=== PATIENT | female | born 1970 | race Caucasian/White ===

== ENCOUNTER 2024-12-29 19:06 | Emergency (ER) | payer MEDICAID ==
[~2024-12-29] VITALS: Ht 170.2 cm; Wt 72.5 kg
[2024-12-29 19:10] VITALS: BP 167/85; PULSE 89; O2SAT 99
--- NOTE | 2024-12-29 19:51 | RADIOLOGY REPORT ---
CLINICAL INDICATION: Fall, pain, BACK INJURY 20 YRS AGO TECHNIQUE: 3 radiographic views of the lumbar spine were obtained. Comparison: None FINDINGS/IMPRESSION: 5 cyi-lso-uxtfczy lumbar-type vertebra. Mild straightening of the lumbar lordosis. Vertebral body he ights are maintained. No evidence of acute traumatic fractures or spondylolisthesis. Multilevel mild- to-moderate degenerative changes of the lumbar spine. Large amount of fecal material within the partially visualized colon.
[2024-12-29 20:42] VITALS: RESP 16
[2024-12-29] MEDS: ketorolac trometh 15mg/ml vial 15 MG/ML ML IM ONE (20:42)
--- NOTE | 2024-12-29 21:44 | ELECTROCARDIOGRAPH REPORT ---
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
--- NOTE | 2024-12-29 22:13 | Physician Documentation ---
History of Present Illness ~ Chief Complaint: Mechanical Fall Stated Complaint: FALL Time Seen by MD: 19:35 HPI Patient is a 54-year-old female that reports to the emergency department for back pain after fall earlier today. Representing have a new dog the dog circled around her tripped her and she fell onto her butt twisting as she went down. Patient reports striking her right knee left elbow they are semi painful but the majority of her pain is from her lower back radiating down her right leg. Patient reports that she has had a history of back pain in the past. Patient denies striking her head. Patient denies head or neck pain at this time. Tetanus within 5 Years?: Yes Medication Reconciliation Allergies: Coded Allergies: No Known Allergies (Unverified , 12/29/24) Review of Systems ROS As stated above in the HPI, otherwise all systems are reviewed and negative. Physical Exam Vital Signs: Temperature: 97.6, Source: Temporal, Heart Rate: 89, Respiratory Rate: 16, BP: 167/85, Pulse Oximetry: 99, Weight: 72.500 Physical Exam VITALS: Reviewed and as above. GENERAL: Alert, no apparent distress. HEENT: Normocephalic, atraumatic, PERRL, EOMI, dry mucosa, no erythema RESPIRATORY: Lungs clear, normal breath sounds, no respiratory distress. CHEST: No accessory muscle use, no retractions CV: Regular rate, rhythm, no edema, no murmur, No: JVD GI: Soft, non-tender, bowels sounds present, no rebound, guarding, or rigidity BACK: No CVA tenderness, or swelling MUSCULOSKELETAL No deformities, no edema, palpation to the right lower back lateral to the spine. SKIN: Warm and dry, no rash NEURO: Oriented x4, No motor or sensory deficit PSYCH: Normal mood and affect, no agitation Progress Results/Orders Results/Orders Orders - NORAH VIDALES [employer] Lumbar Spine Limited (12/29/24 19:40) Completed Orders - NORAH VIDALES [employer] Lumbar Spine Limited (12/29/24 19:40) Ketorolac Trometh 15mg/Ml Vial (Toradol (12/29/24 20:25) Acetaminophen 325mg Tablet (Tylenol Tabl (12/29/24 20:25) Methylprednisolone Sod Succ (Solumedrol (12/29/24 20:30) Stat Ekg (12/29/24 21:17) Medications Received in ER Medications (Trade) Dose Ordered Sig/Omer Route PRN Reason Start Time Stop Time Status Last Admin Dose Admin (Toradol injection) 15 mg ONCE ONCE IM 12/29/24 20:25 12/29/24 20:26 DC 12/29/24 20:42 15 MG (Tylenol tablet) 650 mg ONCE ONCE PO 12/29/24 20:25 12/29/24 20:26 DC 12/29/24 20:42 650 MG (SoluMEDROL 125mg inj) 125 mg ONCE ONCE IM 12/29/24 20:30 12/29/24 20:31 DC 12/29/24 20:42 125 MG Vital Signs 12/29/24 12/29/24 19:10 20:42 Temp 97.6 Pulse 89 Resp 15 16 B/P (MAP) 167/85 Pulse Ox 99 Medical Decision Making Findings This patient presents with back pain most consistent with lumbosacral sprain versus sciatica. Differential diagnoses includes lumbago versus musculoskeletal spasm / strain versus sciatica. Positive straight leg raise. No back pain red flags on history or physical. Presentation not consistent with malignancy (lack of history of malignancy, lack of B symptoms), fracture (no trauma, no bony tenderness to palpation), cauda equina (no bowel or urinary incontinence/retention, no saddle anesthesia, no distal weakness), AAA, viscus perforation, osteomyelitis or epidural abscess (no IVDU, vertebral tenderness), renal colic, pyelonephritis (afebrile, no CVAT, no urinary symptoms). Given the clinical picture, no indication for imaging at this time. Patient given Toradol Solu-Medrol here in the emergency department. Patient reports significant improvement. Plan to discharge patient with 3 days of Flexeril and have patient follow up with her primary care provider. Strict return precautions have been provided to patient. Differential Dx:Considerations: Include: Closed head injury, Cardiac injury, Fracture(s), Intraabdominal injury, Pneumothorax, Cerebral contusion, Pulmonary contusion, Spine injury, Tracheal injury, Urological injury, Vascular injury, Abrasion(s), Contusion(s), Foreign body(s), Hematoma(s), Laceration(s), Encephalopathy, Other Departure Disposition: HOME / SELF CARE / HOMELESS Impression: Primary Impression: Fall Additional Impressions: Sprain, lumbosacral Sciatica Pain Condition: Stable Discharge Instructions: Fall Prevention in the Home, Adult, [id number], Sciatica, [id number] Additional Instructions: This patient presents with back pain most consistent with lumbosacral sprain versus sciatica. Differential diagnoses includes lumbago versus musculoskeletal spasm / strain versus sciatica. Positive straight leg raise. No back pain red flags on history or physical. Presentation not consistent with malignancy (lack of history of malignancy, lack of B symptoms), fracture (no trauma, no bony tenderness to palpation), cauda equina (no bowel or urinary incontinence/retention, no saddle anesthesia, no distal weakness), AAA, viscus perforation, osteomyelitis or epidural abscess (no IVDU, vertebral tenderness), renal colic, pyelonephritis (afebrile, no CVAT, no urinary symptoms). Given the clinical picture, no indication for imaging at this time. Patient given Toradol Solu-Medrol here in the emergency department. Patient reports significant improvement. Plan to discharge patient with 3 days of Flexeril and have patient follow up with her primary care provider. Strict return precautions have been provided to patient. Primary care provider. Please return to the emergency department if you have any worsening of current symptoms i.e. significant increase in pain bowel or bladder incontinence numbness or tingling in her lower extremities inability to ambulate any other concerning symptoms that we discussed here today. Referrals: NO PRIMARY CARE PROVIDER (PCP) Prescriptions Cyclobenzaprine* (Cyclobenzaprine*) 10 Mg Tablet 1 TAB PO TID for 5 Days, #15 TAB Prov: NORAH VIDALES 12/29/24 Education Educated: Patient Educated regarding: diagnosis, treatment, need for follow up Signature Scribe Signature: AScribed for Norah Vidalesp by ANTHONY Wilkinson . 12/29/24 22:18 Attestation: Scribed for Norah Vidales by ANTHONY Wilkinson . 12/29/24 22:19 NORAH VIDALES Dec 29, 2024 22:13
[2024-12-29] MEDS ORDERED: CYCL-1 PO (22:18)
[2024-12-29 22:26] VITALS: TEMP 97.6
== END 2024-12-29 22:28 | disposition home or self-care (01) ==
LOC: ER 19:07
DX: S33.8XXA Sprain of other parts of lumbar spine and pelvis, initial encounter (principal); M25.562 Pain in left knee; M25.561 Pain in right knee; W01.0XXA Fall on same level from slipping, tripping and stumbling without subsequent striking against object, initial encounter; Y93.89 Activity, other specified; Y92.89 Other specified places as the place of occurrence of the external cause; Y99.8 Other external cause status
CPT/HCPCS: 72100; 93005; 96372; 99284; J1885; J2919